=== PATIENT | male | born 1980 | race Caucasian/White ===

== ENCOUNTER 2016-07-27 19:07 | Emergency (ER) | payer OTHER ==
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
[2016-07-27] MEDS ORDERED: NORVASC PO (19:20)
[2016-07-27] MEDS ORDERED: ULTRAM PO (19:20)
[2016-07-27] MEDS ORDERED: CLARITIN10 M3 PO (19:20)
[2016-07-27] MEDS ORDERED: FLEXERIL10 MG PO (19:21)
[2016-07-27] MEDS ORDERED: MAXALT5 MG PO (19:21)
[2016-07-27] MEDS ORDERED: TRAZODONE HCL5 GM PO (19:21)
[2016-07-27] MEDS ORDERED: PRILOSEC PO (19:22)
== END 2016-07-27 20:05 | disposition home or self-care (01) ==
LOC: SED 19:07
DX: M25.512 Pain in left shoulder (principal); K21.9 Gastro-esophageal reflux disease without esophagitis; I10 Essential (primary) hypertension; Z91.040 Latex allergy status; Z79.899 Other long term (current) drug therapy
CPT/HCPCS: 73030; 99283